=== PATIENT | male | born 1975 | race Caucasian/White ===

== ENCOUNTER 2020-01-19 13:09 | Emergency (ER) | payer SELFPAY ==
[~2020-01-19] VITALS: Ht 172.7 cm; Wt 75.0 kg
--- NOTE | 2020-01-19 13:45 | NUR ---
PT RESTING IN BED, CALL LIGTH IN REACH. NO COMPLAINTS AT THIS TIME
--- NOTE | 2020-01-19 14:19 | NUR ---
ermd at bedside for evaluation
[2020-01-19 14:31] LABS: BASOPHILS # (AUTO) 0.02 x10^3/uL (0-0.1); BASOPHILS % (AUTO) 0 % (0-1); EOSINOPHILS # (AUTO) 0.06 x10^3/uL (0-0.4); EOSINOPHILS % (AUTO) 1 % (1-7); LYMPHOCYTES # (AUTO) 1.02 x10^3/uL (1-3.4); LYMPHOCYTES % (AUTO) 15 % (22-44); MD NO; MEAN CORPUSCULAR HEMOGLOBIN 29.8 pg (27.5-34.5); MEAN CORPUSCULAR HGB CONC 32.9 g/dL (33.2-36.2); MEAN CORPUSCULAR VOLUME 90.7 fL (81-97); MEAN PLATELET VOLUME 8.7 fL (7.4-10.4); MONOCYTES # (AUTO) 0.17 x10^3/uL (0.2-0.8); MONOCYTES % (AUTO) 3 % (2-9); NEUTROPHILS # (AUTO) 5.41 x10^3/uL (1.8-6.8); NEUTROPHILS % (AUTO) 81 % (42-75); PLATELET COUNT 252 x10^3/uL (130-400); RED BLOOD COUNT 3.97 x10^6/uL (4.38-5.82); RED CELL DISTRIBUTION WIDTH 14.2 % (9.4-14.8)
[2020-01-19 14:34] LABS: ANION GAP 8 mmol/L (5-15); CALCIUM 8.5 mg/dL (8.5-10.1); CHLORIDE 107 mmol/L (98-107); CREATININE 0.75 mg/dL (0.7-1.3)
--- NOTE | 2020-01-19 14:40 | NUR ---
Bebe torres in ED - 01/19/20 at 1441 by [email or web address] RT NOTIFIED FOR HUMID/AERO O2
--- NOTE | 2020-01-19 14:41 | NUR ---
PT RESTING IN BED
[2020-01-19 16:18] VITALS: BP 139/78
--- NOTE | 2020-01-19 16:19 | NUR ---
pt resting in bed, call light in reach.
--- NOTE | 2020-01-19 17:31 | NUR ---
DISCHARGE INSTRUCTIONS REVIEWED. REPORT TO ABDULAZIZ, STEADY AMBULATION TO DAVE.
== END 2020-01-19 17:34 | disposition home or self-care (01) ==
LOC: ED 14:01
DX: U07.1 COVID-19 (principal); I49.3 Ventricular premature depolarization; I24.9 Acute ischemic heart disease, unspecified; R00.0 Tachycardia, unspecified; I51.7 Cardiomegaly; Z59.0 Homelessness
CPT/HCPCS: 36415; 71045; 80048; 85025; 93005; 99285

== ENCOUNTER 2020-03-21 09:03 | Emergency (ER) | payer SELFPAY ==
[~2020-03-21] VITALS: Ht 172.7 cm; Wt 79.0 kg
[2020-03-21 09:16] VITALS: BP 142/91
--- NOTE | 2020-03-21 09:49 | NUR ---
Patient given discharge instructions and they have confirmed that they understand the instructions. Patient ambulatory with steady gait.
== END 2020-03-21 09:50 | disposition home or self-care (01) ==
LOC: ED 09:40
DX: Z00.00 Encounter for general adult medical examination without abnormal findings (principal); F17.200 Nicotine dependence, unspecified, uncomplicated; Z59.0 Homelessness
CPT/HCPCS: 99281

== ENCOUNTER 2020-10-01 18:00 | Emergency (ER) | payer SELFPAY ==
[~2020-10-01] VITALS: Ht 172.7 cm; Wt 72.6 kg
[2020-10-01 18:14] VITALS: BP 155/95
--- NOTE | 2020-10-01 18:33 | NUR ---
SAP MANAGER: TP RN TO PAGE CASE MANAGEMENT.
--- NOTE | 2020-10-01 18:46 | NUR ---
TITLE I TEACHER: PT PIT BY AT THIS TIME. PT RETURNED TO LOBBY W/O INCIDENT. RESP EVEN AND UNLABORED, ARUN.
== END 2020-10-01 19:42 | disposition home or self-care (01) ==
LOC: ED 19:05
DX: Z00.00 Encounter for general adult medical examination without abnormal findings (principal); Z72.9 Problem related to lifestyle, unspecified
CPT/HCPCS: 99281

== ENCOUNTER 2020-11-10 11:30 | Emergency (ER) | payer MEDICAID ==
[~2020-11-10] VITALS: Ht 172.7 cm; Wt 74.0 kg
--- NOTE | 2020-11-10 11:38 | NUR ---
PT IN RESTROOM AT THIS TIME.
[2020-11-10 11:43] VITALS: BP 121/93
--- NOTE | 2020-11-10 12:03 | NUR ---
MD IN ROOM TALKING TO PT
--- NOTE | 2020-11-10 12:48 | NUR ---
PT SAYS HE CAME TO ED BECAUSE HE HAS A CONNNECTION WITH ORALIA WHO HELPED HIM GET OUT OF [facility] AND [facility]. DENIES TAKING ANY MEDICATIONS. NOTED TO PEAK RAMBLES THAT DO NOT MAKE ANY SENSE. HARD TO GET INFORMATION OUT OF PT. DENIES SI/HI.
[2020-11-10 13:00] LABS: ALBUMIN 3.7 g/dL (3.4-5.0); ANION GAP 2 mmol/L (5-15); CALCIUM 8.9 mg/dL (8.5-10.1); CHLORIDE 106 mmol/L (98-107); CREATININE 0.79 mg/dL (0.7-1.3); SALICYLATE LEVEL 2.3 mg/dL (2.8-20.0)
[2020-11-10 13:07] LABS: BASOPHILS % (AUTO) 1 % (0-1); EOSINOPHILS % (AUTO) 3 % (1-7); LYMPHOCYTES % (AUTO) 19 % (22-44); MEAN CORPUSCULAR HGB CONC 33.8 g/dL (33.2-36.2); MEAN PLATELET VOLUME 8.9 fL (7.4-10.4); MONOCYTES % (AUTO) 13 % (2-9); NEUTROPHILS % (AUTO) 65 % (42-75); PLATELET COUNT 233 x10^3/uL (130-400); RED BLOOD COUNT 4.46 x10^6/uL (4.38-5.82); RED CELL DISTRIBUTION WIDTH 14.9 % (9.4-14.8)
[2020-11-10 13:17] LABS: MD NO
--- NOTE | 2020-11-10 13:54 | NUR ---
PROVIDED MEAL TRAY TO PT. PT CURRENTLY EATING.
--- NOTE | 2020-11-10 14:19 | NUR ---
REVIEWED DC INFORMATION WITH PT, PT AGREED.
== END 2020-11-10 14:21 | disposition home or self-care (01) ==
LOC: ED 13:36
DX: F20.89 Other schizophrenia (principal)
CPT/HCPCS: 36415; 80048; 80299; 80320; 80329; 82040; 85025; 99283; G0480

== ENCOUNTER 2020-11-20 06:52 | Emergency (ER) | payer MEDICAID ==
[~2020-11-20] VITALS: Ht 172.7 cm; Wt 74.2 kg
[2020-11-20 06:54] VITALS: BP 182/102
== END 2020-11-20 08:48 | disposition home or self-care (01) ==
LOC: ED 07:14
DX: F20.89 Other schizophrenia (principal)
CPT/HCPCS: 99284

== ENCOUNTER 2020-12-16 22:31 | Emergency (ER) | payer MEDICAID ==
[~2020-12-16] VITALS: Ht 172.7 cm; Wt 71.5 kg
[2020-12-16 22:36] VITALS: BP 152/100
--- NOTE | 2020-12-16 23:04 | NUR ---
ASSOCIATE PROFESSOR OF VIOLIN: GEOFF ANDRADE IN TO JENNY PT. IN TRIAGE. PT. MAKING INAPPROPRIATE COMMENTS TO HER SUCH "I AM HERE FOR SELF EJACULATION, I JUST NEED A ROOM TO DO IT IN". PT. BECAME VERY VERBALLY AGRESSIVE WHEN TOLD HE WOULD NOT GET A FOR FOR THIS. PT. ESCORTED OUT OF ED BY SECURITY.
== END 2020-12-16 23:07 | disposition home or self-care (01) ==
LOC: ED 23:00
DX: F20.9 Schizophrenia, unspecified (principal); F31.9 Bipolar disorder, unspecified; Z72.9 Problem related to lifestyle, unspecified; Z59.0 Homelessness
CPT/HCPCS: 99281

== ENCOUNTER 2020-12-17 22:15 | Emergency (ER) | payer MEDICAID ==
--- NOTE | 2020-12-17 22:33 | NUR ---
PT ESCORTED OUT FROM TRIAGE BY SECURITY WHEN PT STARTED TO SEXUALLY HARASS STAFF IN THE TRIAGE ROOM, DEMANDING SEXUAL FAVORS WITHOUT HAVING A COMPLAINT OF ILLNESS. PT WAS KICKED OUT OF ER 2 DAYS AGO FOR SAME THING. CAFETERIA OR LUNCHROOM CHECKER IS AWARE AND AGREES.
== END 2020-12-17 23:07 | disposition left against medical advice (07) ==
LOC: ED 22:45
DX: R45.851 Suicidal ideations (principal); Z53.21 Procedure and treatment not carried out due to patient leaving prior to being seen by health care provider

== ENCOUNTER 2020-12-18 22:32 | Emergency (ER) | payer MEDICAID | END 2020-12-19 00:13 | disposition left against medical advice (07) | LOC: ED 22:42 | DX: Z53.21 Procedure and treatment not carried out due to patient leaving prior to being seen by health care provider (principal) ==

== ENCOUNTER 2020-12-30 20:31 | Emergency (ER) | payer MEDICAID ==
[~2020-12-30] VITALS: Ht 172.7 cm; Wt 76.0 kg
[2020-12-30 20:44] VITALS: BP 129/80
--- NOTE | 2020-12-30 20:50 | NUR ---
assessment made. chart up for MD to see. patient calm and cooperative. placed on legal hold for delusion and failure to thrive. not in custody. belongings placed in 1 plastic bag.
--- NOTE | 2020-12-30 21:02 | NUR ---
blood drawn by landscape and yardwork laborer.
[2020-12-30 21:28] LABS: BASOPHILS % (AUTO) 1 % (0-1); EOSINOPHILS % (AUTO) 1 % (1-7); LYMPHOCYTES % (AUTO) 24 % (22-44); MEAN CORPUSCULAR HEMOGLOBIN 29.6 pg (27.5-34.5); MEAN CORPUSCULAR HGB CONC 34.3 g/dL (33.2-36.2); MEAN PLATELET VOLUME 7.8 fL (7.4-10.4); MONOCYTES % (AUTO) 11 % (2-9); NEUTROPHILS % (AUTO) 64 % (42-75); PLATELET COUNT 332 x10^3/uL (130-400); RED BLOOD COUNT 4.59 x10^6/uL (4.38-5.82); RED CELL DISTRIBUTION WIDTH 15.6 % (9.4-14.8)
[2020-12-30 21:29] LABS: MD NO
--- NOTE | 2020-12-30 21:34 | NUR ---
total of 3 plastic bags of belongings placed in locker.
[2020-12-30 21:38] LABS: AMPHETAMINE SCREEN, URINE Negative (Negative); BARBITURATE SCREEN, URINE Negative (Negative); BENZODIAZEPINE SCREEN, URINE Negative (Negative); CANNABINOID SCREEN, URINE Negative (Negative); COCAINE SCREEN, URINE Negative (Negative); METHADONE SCREEN, URINE Negative (Negative); OPIATE SCREEN, URINE Negative (Negative)
[2020-12-30 21:39] LABS: ALANINE AMINOTRANSFERASE 23 U/L (12-78); ALBUMIN 3.6 g/dL (3.4-5.0); ANION GAP 6 mmol/L (5-15); CALCIUM 8.9 mg/dL (8.5-10.1); CHLORIDE 103 mmol/L (98-107)
[2020-12-30 21:45] LABS: SALICYLATE LEVEL < 1.7 mg/dL (2.8-20.0)
[2020-12-30 21:50] LABS: ALKALINE PHOSPHATASE 87 U/L (45-117); BILIRUBIN,TOTAL 1.1 mg/dL (0.2-1.0); TOTAL PROTEIN 7.7 g/dL (6.4-8.2)
== END 2020-12-30 23:07 | disposition home or self-care (01) ==
LOC: ED 21:30
DX: F28 Other psychotic disorder not due to a substance or known physiological condition (principal); G89.29 Other chronic pain; F17.210 Nicotine dependence, cigarettes, uncomplicated; Z91.19 Patient's noncompliance with other medical treatment and regimen; Z72.9 Problem related to lifestyle, unspecified
CPT/HCPCS: 36415; 80053; 80299; 80307; 80320; 80329; 84443; 84703; 85025; 99285; 99406; G0480

== ENCOUNTER 2021-01-05 22:13 | Emergency (ER) | payer MEDICAID ==
[~2021-01-05] VITALS: Ht 172.7 cm; Wt 70.5 kg
[2021-01-05 22:18] VITALS: BP 112/79
== END 2021-01-05 23:31 | disposition home or self-care (01) ==
LOC: ED 22:35
DX: F20.9 Schizophrenia, unspecified (principal); F17.210 Nicotine dependence, cigarettes, uncomplicated; Z72.9 Problem related to lifestyle, unspecified
CPT/HCPCS: 99281; 99406